=== PATIENT | female | born 1950 | race Caucasian/White ===

== ENCOUNTER 2018-06-05 02:17 | Inpatient (IN) | payer MEDICARE, BC ==
[~2018-06-05] VITALS: Ht 180.3 cm; Wt 63.5 kg
[2018-06-05] MEDS ORDERED: ATOR40TA PO (02:44)
[2018-06-05] MEDS ORDERED: AMLO10TA2 PO (02:44)
[2018-06-05] MEDS ORDERED: VALB80CA PO (02:44)
[2018-06-05] MEDS ORDERED: GABA-534 PO (02:44)
--- NOTE | 2018-06-05 02:45 | NUR ---
ADMISSION NOTES: ADMITTED A 67 Y/O FEMALE, PATIENT CAME FROM [facility]. ADMITTED FROM ER. PT IS ON 5150 HOLD FOR GD. PER HOLD PT WAS FOUND IN HER HOME COVERED IN URINE, NOT EATING, SLEEPING, SHE REPORTS SHE HAD BEEN SEVERELY DEPRESSED AND HAD NOT LEFT IN HER COUCH IN A DAY. PT UNABLE TO ACCEPT OR ACCESS BASIC CARE, FOOD DUE TO PSYCHIATRIC SYMPTOMS. UPON FACE TO FACE ASSESSMENT. PATIENT APPEARS TO BE ALERT, ORIENTED X2, ANXIOUS, CONFUSED, DEPRESSED. V/S STABLE. NO COMPLAIN OF PAIN/DISCOMFORT AT THIS TIME. NO ACUTE DISTRESS NOTED. BELONGINGS INVENTORIED AND CHECKED FOR CONTRABAND. PUT IT IN SAFE/LOCKED CABINET. PATIENT IS UNDER THE PSYCHIATRIC CARE OF DR. ESPARZA AND UNDER THE MEDICAL CARE OF DR. DAVIS. BOTH DOCTORS ARE AWARE OF THE ADMISSION. SKIN/BODY ASSESSMENT DONE. PICTURES TAKEN. WOUND CONSULT TRIGGERED. MRSA DONE. BED LOCKED AND PLACED IN LOWEST POSITION. ALL NEEDS ATTENDED. WILL CONTINUE TO MONITOR Q15MIN FOR SAFETY AND BEHAVIOR.
[2018-06-05] MEDS ORDERED: CEPH-570 PO (02:49)
[2018-06-05] MEDS ORDERED: MAG HYDROX/AL HYDROX/SIMETH 30 ML UDC PO PRN (03:00)
[2018-06-05] MEDS ORDERED: MAGNESIUM HYDROXIDE 30 ML UDC PO PRN (03:00)
[2018-06-05] MEDS ORDERED: clonazePAM 0.5 MG TABLET PO PRN (03:00)
[2018-06-05 04:02] VITALS: BP 146/75
--- NOTE | 2018-06-05 05:30 | NUR ---
GPS-RN PAGED DR. DAVIS TO RECONCILE THE MEDS. AWAITING TO CALLBACK. WILL ENDORSE TO NEXT SHIFT NURSE FOR FOLLOW UP.
[2018-06-05 08:00] VITALS: BP 130/85
[2018-06-05] MEDS: Z GUARD REMEDY 2 OZ OINT TP SCH (09:29)
--- NOTE | 2018-06-05 12:21 | NUR ---
CALLED DR. LIU FOR THE CONSULT AND LEFT A MESSAGE.
[2018-06-05] MEDS: ARIPIPRAZOLE 2 MG TABLET PO SCH (12:55)
--- NOTE | 2018-06-05 14:41 | NUR ---
GPS/RN-NOTES DID F/U WITH PATIENT SISTER JOSE MOURA ([phone]) REGARDING INGREZZA MEDICATION IF THEY WILL PROVIDE. PER JOSE SHE WILL F/U BY THURSDAY CAUSE SHE BELIEVE THAT NEXT DELIVERY OF THE PATIENT MEDICATIONS WAS THIS COMING THURSDAY. MANAGER OF ADMINISTRATION INSTRUCTED JOSE TO CALL THE UNIT WHEN THE SAID MEDICATION IS AVAILABLE OR TO BRING IN THE MEDICATION. MALICK (PHARMACIES) MADE AWARE.
[2018-06-05 16:00] VITALS: BP 119/81
--- NOTE | 2018-06-05 19:10 | NUR ---
RN OPENING NOTES RECEIVED PT AWAKE IN BED, IN NO ACUTE DISTRESS AT THIS TIME, NO SOB AND BREATHING EVEN AND UNLABORED. PT IS ALERT AND ORIENTED X 2, VERBALLY RESPONSIVE WITH NO C/O PAIN,. ALL PATIENT'S NEEDS ATTENDED TO. PLACED BED IN LOW POSITION AND LOCKED IN PLACE.
[2018-06-05 20:00] VITALS: BP 125/75
[2018-06-05] MEDS: CEPHALEXIN MONOHYDRATE 500 MG CAPSULE PO SCH (21:04)
[2018-06-05] MEDS: MIRTAZAPINE 15 MG TABLET PO SCH (21:04)
[2018-06-06 08:00] VITALS: BP 109/64
[2018-06-06] MEDS: CEPHALEXIN MONOHYDRATE 500 MG CAPSULE PO SCH ×2 (08:27→21:21)
[2018-06-06] MEDS: GABAPENTIN 300 MG CAPSULE PO SCH (08:27)
[2018-06-06] MEDS: ATORVASTATIN 40 MG TABLET PO SCH (08:27)
[2018-06-06] MEDS: ARIPIPRAZOLE 2 MG TABLET PO SCH (08:27)
[2018-06-06] MEDS: AMLODIPINE BESYLATE 10 MG TABLET PO SCH (08:28)
[2018-06-06] MEDS: Valbenazine Tosylate (Ingrezza) 80 MG PO SCH (08:29)
[2018-06-06] MEDS: Z GUARD REMEDY 2 OZ OINT TP SCH (08:32)
[2018-06-06 10:38] LABS: BASOPHILS % (AUTO) 0.4 % (0.0-2.0); EOSINOPHILS % (AUTO) 1.9 % (0.0-6.0); HEMATOCRIT 44 % (33-45); HEMOGLOBIN 14.8 g/dL (11.5-14.8); LYMPHOCYTES # (AUTO) 2.1 /CMM (0.8-4.8); LYMPHOCYTES % (AUTO) 32.3 % (20.0-44.0); MEAN CORPUSCULAR HEMOGLOBIN 32 PG (26.0-33.0); MEAN CORPUSCULAR HGB CONC 33 g/dl (31.0-36.0); MEAN CORPUSCULAR VOLUME 95 fL (82-100); MONOCYTES # (AUTO) 0.6 /CMM (0.1-1.30); NEUTROPHILS # (AUTO) 3.7 /CMM (1.8-8.9); NEUTROPHILS % (AUTO) 56.4 % (43.0-81.0); PLATELET COUNT (AUTO) 221 /CMM (150-450); RDW COEFFICIENT OF VARIATION 14.1 (11.5-15.0); RED BLOOD CELL COUNT(AUTO) 4.67 MIL/uL (4.0-5.2); WHITE BLOOD COUNT (AUTO) 6.6 K/uL (4.3-11.0)
[2018-06-06 10:59] LABS: ALBUMIN 3.4 g/dL (3.4-5.0); BILIRUBIN,TOTAL 1.1 mg/dL (0.2-1.0); CALCIUM, SERUM 8.5 mg/dL (8.5-10.1); CREATININE 0.8 mg/dL (0.6-1.3); POTASSIUM 3.2 mmol/L (3.5-5.1); TOTAL PROTEIN, SERUM 6.5 g/dL (6.4-8.2)
[2018-06-06] MEDS ORDERED: POTASSIUM CHLORIDE 20 MEQ TAB.PRT.SR PO ONE (11:30)
[2018-06-06 16:00] VITALS: BP 106/52
[2018-06-06 19:58] VITALS: BP 96/60
[2018-06-06] MEDS: MIRTAZAPINE 15 MG TABLET PO SCH (21:21)
[2018-06-06 23:00] VITALS: BP 105/62
[2018-06-07 08:00] VITALS: BP 120/67
[2018-06-07 08:07] LABS: THYROID STIMULATING HORMONE 1.84 uIU/mL (0.358-3.74)
[2018-06-07] MEDS: Valbenazine Tosylate (Ingrezza) 80 MG PO SCH (09:00)
[2018-06-07] MEDS: AMLODIPINE BESYLATE 10 MG TABLET PO SCH (09:20)
[2018-06-07] MEDS: ATORVASTATIN 40 MG TABLET PO SCH (09:20)
[2018-06-07] MEDS: CEPHALEXIN MONOHYDRATE 500 MG CAPSULE PO SCH ×2 (09:20→20:41)
[2018-06-07] MEDS: Z GUARD REMEDY 2 OZ OINT TP SCH (09:21)
[2018-06-07] MEDS: ARIPIPRAZOLE 2 MG TABLET PO SCH (09:21)
--- NOTE | 2018-06-07 11:41 | NUR ---
WOUND CARE CONSULT: PT PRESENTS AMBULATORY BUT INCONTINENT WITH RASH TO BUTTOCKS AND PERINEUM, PRESENT ON ADMISSION. RECOMMENDATIONS MADE FOR SKIN CARE AND PROTECTION. DISCUSSED WITH NURSING STAFF. WILL SEE PRN. CORLEY IN AGREEMENT WITH PLAN OF CARE. Addendum: 06/07/18 at 1143 by KARY SAMPSON WNDNU Amended: Links added.
[2018-06-07] MEDS: ASPIRIN EC 81 MG TABLET.DR PO SCH (11:47)
[2018-06-07] MEDS: GABAPENTIN 300 MG CAPSULE PO SCH (11:47)
--- NOTE | 2018-06-07 11:57 | NUR ---
[id number]: CALLED JOSE SISTER OF PT AND AT THIS TIME FAMILY CAN'T BRING INGREZZA 80 MG PO BECAUSE IT'S GETTING MAILED. NOTIFIED PHARMACY ABOUT THIS MEDICATION AND THAT FAMILY WILL BRINGING WHEN THE MEDICATION ARRIVES
--- NOTE | 2018-06-07 12:12 | NUR ---
Pt's sister and DPOA, Oksana Martinez ([phone]) and her other sister, Karen Zamudio ([phone]), called the SW and inquired about the pt. SW stated that there is no discharge plan yet considering that the SW has not had the opportunity to meet with the pt yet or her psychiatrist. The DPOA stated that she would like the pt to be transferred to a senior living facility in the [facility].
--- NOTE | 2018-06-07 15:59 | NUR ---
Initial Discharge Plan: Pt is currently living in a mobile home located at [address] [place] [address], [address] [address]; ([phone]). Per pt, she would like to return there but her DPOA, Oksana Martinez ([phone]), stated that a assisted facility is more appropriate. GIN will work with the pt, the DPOA and the MD regarding appropriate discharge planning. SW will form a safe and proper discharge.
[2018-06-07 16:00] VITALS: BP 112/78
[2018-06-07] MEDS: CLOTRIMAZOLE 1% 15 GM TUBE TP SCH (16:07)
[2018-06-07 20:50] VITALS: BP 101/44
[2018-06-07] MEDS: MIRTAZAPINE 15 MG TABLET PO SCH (21:30)
[2018-06-08 08:00] VITALS: BP 98/71
[2018-06-08] MEDS: Valbenazine Tosylate (Ingrezza) 80 MG PO SCH (09:00)
[2018-06-08] MEDS: AMLODIPINE BESYLATE 10 MG TABLET PO SCH (09:00)
[2018-06-08] MEDS: ARIPIPRAZOLE 2 MG TABLET PO SCH (09:18)
[2018-06-08] MEDS: ASPIRIN EC 81 MG TABLET.DR PO SCH (09:18)
[2018-06-08] MEDS: CEPHALEXIN MONOHYDRATE 500 MG CAPSULE PO SCH ×2 (09:18→20:40)
[2018-06-08] MEDS: GABAPENTIN 300 MG CAPSULE PO SCH (09:18)
[2018-06-08] MEDS: ATORVASTATIN 40 MG TABLET PO SCH (09:18)
[2018-06-08] MEDS: Z GUARD REMEDY 2 OZ OINT TP SCH (09:25)
[2018-06-08] MEDS: CLOTRIMAZOLE 1% 15 GM TUBE TP SCH ×2 (09:25→17:21)
--- NOTE | 2018-06-08 10:58 | NUR ---
NO INGREZZA MED YET DELIVERED BY FAMILY.SO UNABLE TO ADMINISTER.
[2018-06-08 12:43] LABS: APPEARANCE,URINE CLEAR (CLEAR); BILIRUBIN,URINE NEGATIVE (NEGATIVE); BLOOD, URINE NEGATIVE Ery/uL (NEGATIVE); COLOR,URINE YELLOW (YELLOW); KETONES,URINE NEGATIVE (NEGATIVE); LEUKOCYTE ESTERASE ,URINE NEGATIVE (NEGATIVE); NITRITE, URINE NEGATIVE (NEGATIVE); PROTEIN,URINE NEGATIVE (NEGATIVE); UGLUCOSE NEGATIVE (NEGATIVE)
[2018-06-08 13:06] LABS: RBC,URINE NONE SEEN /HPF (0-2)
[2018-06-08 13:09] LABS: BACTERIA,URINE None seen /HPF (None Seen); CALCIUM OXALATE CRYSTALS,UR Few /HPF (None Seen); MUCUS,URINE Few /LPF (None Seen); SQUAMOUS EPITHELIAL CELL,UR Rare /HPF (None Seen)
[2018-06-08 16:00] VITALS: BP 91/58
--- NOTE | 2018-06-08 16:03 | NUR ---
SW called pt's sister and DPOA, Oksana Martinez ([phone]), and left her a voicemail stating that there are no updates in terms of a assisted facility in [place].
[2018-06-08 20:14] VITALS: BP 109/54
[2018-06-08 20:23] VITALS: BP 165/72
[2018-06-08] MEDS: MIRTAZAPINE 15 MG TABLET PO SCH (21:03)
[2018-06-09 08:00] VITALS: BP 114/78
[2018-06-09] MEDS: Valbenazine Tosylate (Ingrezza) 80 MG PO SCH (09:00)
[2018-06-09] MEDS: Z GUARD REMEDY 2 OZ OINT TP SCH (09:44)
[2018-06-09] MEDS: CLOTRIMAZOLE 1% 15 GM TUBE TP SCH ×2 (09:45→16:07)
[2018-06-09] MEDS: ATORVASTATIN 40 MG TABLET PO SCH (09:46)
[2018-06-09] MEDS: CEPHALEXIN MONOHYDRATE 500 MG CAPSULE PO SCH ×2 (09:46→20:58)
[2018-06-09] MEDS: GABAPENTIN 300 MG CAPSULE PO SCH (09:47)
[2018-06-09] MEDS: ARIPIPRAZOLE 5 MG TABLET PO SCH (09:47)
[2018-06-09] MEDS: AMLODIPINE BESYLATE 10 MG TABLET PO SCH (09:47)
[2018-06-09] MEDS: ASPIRIN EC 81 MG TABLET.DR PO SCH (09:47)
--- NOTE | 2018-06-09 13:05 | NUR ---
Oksana Martinez ([phone]) called the SW back and suggested two placement options because she stated that senior living facilities in the [place] are not an option. The two options were: [facility] and [facility].
--- NOTE | 2018-06-09 13:09 | NUR ---
Karen Zamudio ([phone]), pt's sister, called the SW and restated what the pt's DPOA stated.
--- NOTE | 2018-06-09 15:00 | NUR ---
NURSING NOTE DR. ESPARZA HAS BEEN NOTIFIED REGARDING PT NOT TAKING INGREZZA 80 MG PO DUE TO MEDICATION NOT BEING AVAILABLE. WILL CONTINUE TO MONITOR.
[2018-06-09 16:00] VITALS: BP 180/54
[2018-06-09 20:10] VITALS: BP 94/61
[2018-06-09] MEDS: MIRTAZAPINE 15 MG TABLET PO SCH (21:01)
[2018-06-09] MEDS: ACETAMINOPHEN 325 MG TABLET PO PRN (22:25)
[2018-06-10 08:00] VITALS: BP 121/67
[2018-06-10] MEDS: ASPIRIN EC 81 MG TABLET.DR PO SCH (09:00)
[2018-06-10] MEDS: GABAPENTIN 300 MG CAPSULE PO SCH (09:00)
[2018-06-10] MEDS: CEPHALEXIN MONOHYDRATE 500 MG CAPSULE PO SCH ×2 (09:00→21:28)
[2018-06-10] MEDS: Valbenazine Tosylate (Ingrezza) 80 MG PO SCH (09:00)
[2018-06-10] MEDS: ATORVASTATIN 40 MG TABLET PO SCH (09:00)
[2018-06-10] MEDS: AMLODIPINE BESYLATE 10 MG TABLET PO SCH (09:01)
[2018-06-10] MEDS: Z GUARD REMEDY 2 OZ OINT TP SCH (09:01)
[2018-06-10] MEDS: CLOTRIMAZOLE 1% 15 GM TUBE TP SCH ×2 (09:01→17:00)
[2018-06-10] MEDS: ARIPIPRAZOLE 5 MG TABLET PO SCH (09:20)
--- NOTE | 2018-06-10 10:01 | NUR ---
GIN called two chcf facilities in [place]. One is called [facility] ([phone]) and the other is [facility] ([phone]). The referrals were faxed to: [facility]: [phone] [facility]: [phone]
[2018-06-10 16:00] VITALS: BP 110/75
[2018-06-10 20:00] VITALS: BP 113/69
[2018-06-10 20:18] VITALS: BP 113/69
[2018-06-10] MEDS: MIRTAZAPINE 15 MG TABLET PO SCH (21:28)
[2018-06-11] MEDS: ACETAMINOPHEN 325 MG TABLET PO PRN (00:09)
[2018-06-11] MEDS: TEMAZEPAM 7.5 MG CAPSULE PO PRN ×2 (00:27→21:19)
[2018-06-11 08:00] VITALS: BP 124/73
[2018-06-11] MEDS: Valbenazine Tosylate (Ingrezza) 80 MG PO SCH (09:00)
[2018-06-11] MEDS: ARIPIPRAZOLE 5 MG TABLET PO SCH (09:24)
[2018-06-11] MEDS: CEPHALEXIN MONOHYDRATE 500 MG CAPSULE PO SCH (09:24)
[2018-06-11] MEDS: AMLODIPINE BESYLATE 10 MG TABLET PO SCH (09:25)
[2018-06-11] MEDS: GABAPENTIN 300 MG CAPSULE PO SCH (09:25)
[2018-06-11] MEDS: ATORVASTATIN 40 MG TABLET PO SCH (09:26)
[2018-06-11] MEDS: ASPIRIN EC 81 MG TABLET.DR PO SCH (09:26)
[2018-06-11] MEDS: CLOTRIMAZOLE 1% 15 GM TUBE TP SCH ×2 (09:34→18:00)
[2018-06-11] MEDS: Z GUARD REMEDY 2 OZ OINT TP SCH (09:35)
[2018-06-11] MEDS: FOLIC ACID 1 MG TABLET PO SCH (12:41)
--- NOTE | 2018-06-11 14:08 | NUR ---
GIN called Cher from [facility] ([phone]) and stated that the pt was denied admission due to prior history.
--- NOTE | 2018-06-11 14:10 | NUR ---
SW called [facility] ([phone]) and they provided the SW with a better fax number to send the referral to.
--- NOTE | 2018-06-11 14:11 | NUR ---
GIN faxed a referral to [facility] to the fax number: [phone].
--- NOTE | 2018-06-11 14:12 | NUR ---
GIN faxed a referral to [facility] to the fax number: [phone].
--- NOTE | 2018-06-11 14:13 | NUR ---
SW called pt's sister and DPOA, Oksana Martinez ([phone]), and informed her that [facility] denied the [place] and that the SW would send more referrals out in the [facility] area.
[2018-06-11 16:00] VITALS: BP 112/67
[2018-06-11 20:00] VITALS: BP 106/69
[2018-06-11] MEDS: MIRTAZAPINE 15 MG TABLET PO SCH (21:19)
[2018-06-12 08:00] VITALS: BP 115/79
[2018-06-12] MEDS: Valbenazine Tosylate (Ingrezza) 80 MG PO SCH (09:00)
[2018-06-12] MEDS: CLOTRIMAZOLE 1% 15 GM TUBE TP SCH ×2 (09:19→16:51)
[2018-06-12] MEDS: FOLIC ACID 1 MG TABLET PO SCH (09:20)
[2018-06-12] MEDS: ASPIRIN EC 81 MG TABLET.DR PO SCH (09:20)
[2018-06-12] MEDS: ARIPIPRAZOLE 5 MG TABLET PO SCH (09:20)
[2018-06-12] MEDS: Z GUARD REMEDY 2 OZ OINT TP SCH (09:20)
[2018-06-12] MEDS: GABAPENTIN 300 MG CAPSULE PO SCH (09:20)
[2018-06-12] MEDS: ATORVASTATIN 40 MG TABLET PO SCH (09:20)
[2018-06-12] MEDS: AMLODIPINE BESYLATE 10 MG TABLET PO SCH (09:20)
--- NOTE | 2018-06-12 12:31 | NUR ---
rn notes INGREZZA MED NOT AVAIL, INFORMED DR BRADFORD.
[2018-06-12 16:00] VITALS: BP 95/69
[2018-06-12 20:00] VITALS: BP 100/45
[2018-06-12] MEDS: MIRTAZAPINE 15 MG TABLET PO SCH (21:12)
[2018-06-12] MEDS: TEMAZEPAM 7.5 MG CAPSULE PO PRN (21:19)
[2018-06-13 08:00] VITALS: BP 130/69
[2018-06-13] MEDS: Valbenazine Tosylate (Ingrezza) 80 MG PO SCH (09:00)
[2018-06-13] MEDS: ATORVASTATIN 40 MG TABLET PO SCH (09:34)
[2018-06-13] MEDS: GABAPENTIN 300 MG CAPSULE PO SCH (09:34)
[2018-06-13] MEDS: AMLODIPINE BESYLATE 10 MG TABLET PO SCH (09:34)
[2018-06-13] MEDS: ARIPIPRAZOLE 5 MG TABLET PO SCH (09:34)
[2018-06-13] MEDS: ASPIRIN EC 81 MG TABLET.DR PO SCH (09:34)
[2018-06-13] MEDS: FOLIC ACID 1 MG TABLET PO SCH (09:34)
[2018-06-13] MEDS: Z GUARD REMEDY 2 OZ OINT TP SCH (09:35)
[2018-06-13] MEDS: CLOTRIMAZOLE 1% 15 GM TUBE TP SCH ×2 (09:35→16:55)
[2018-06-13 16:00] VITALS: BP 103/67
[2018-06-13 20:00] VITALS: BP 89/52
[2018-06-13 20:02] VITALS: BP 89/50
--- NOTE | 2018-06-13 20:10 | NUR ---
RN NOTES PATIENT TRANSFER FROM GPS UNIT. PATIENT AWAKE, ALERT AND ORIENTED X 3, CALM, COOPERATIVE, NO AGITATION NOTED AT THIS TIME, NO SOB, NO ACUTE DISTRESS, BREATHING EVEN AND UNLABORED, DENIES PAIN AND DISCOMFORT, WILL CONTINUE TO MONITOR [id number] FOR SAFETY
[2018-06-13] MEDS: MIRTAZAPINE 15 MG TABLET PO SCH (21:42)
--- NOTE | 2018-06-14 06:49 | NUR ---
RN CLOSING NOTES PATIENT AWAKE, ALERT AND ORIENTED X 3, CALM, COOPERATIVE, NO AGITATION NOTED AT THIS TIME, NO SOB, NO ACUTE DISTRESS, BREATHING EVEN AND UNLABORED, DENIES PAIN AND DISCOMFORT. WILL ENDORSE TO DAY SHIFT NURSE FOR CONTINUITY OF CARE.
--- NOTE | 2018-06-14 07:40 | NUR ---
GPS OVERFLOW MS RN OPENING NOTES RECEIVED PT FROM NIGHTSHIFT NURSE IN STABLE CONDITION. PT IS A/O X3. NO SOB OR ACUTE SIGNS OF DISTRESS NOTED. BREATHING EVEN AND UNLABORED. SHE DENIES ANY PAIN AT THIS TIME. SHE DENIES ANY SUICIDAL OR HOMICIDAL IDEATION. BED IN LOW LOCKED POSITION, SIDE RAILS UP X2, 1:1 SITTER AT BEDSIDE. WILL CONTINUE TO MONITOR FOR BEHAVIOR AND SAFETY
[2018-06-14 08:00] VITALS: BP 106/76
[2018-06-14] MEDS: GABAPENTIN 300 MG CAPSULE PO SCH (08:35)
[2018-06-14] MEDS: ASPIRIN EC 81 MG TABLET.DR PO SCH (08:35)
[2018-06-14] MEDS: ARIPIPRAZOLE 5 MG TABLET PO SCH (08:35)
[2018-06-14] MEDS: CLOTRIMAZOLE 1% 15 GM TUBE TP SCH ×2 (08:35→16:11)
[2018-06-14] MEDS: ATORVASTATIN 40 MG TABLET PO SCH (08:36)
[2018-06-14] MEDS: Valbenazine Tosylate (Ingrezza) 80 MG PO SCH (08:36)
[2018-06-14] MEDS: FOLIC ACID 1 MG TABLET PO SCH (08:36)
[2018-06-14] MEDS: AMLODIPINE BESYLATE 10 MG TABLET PO SCH (08:38)
[2018-06-14] MEDS: Z GUARD REMEDY 2 OZ OINT TP SCH (09:00)
--- NOTE | 2018-06-14 11:31 | NUR ---
GIN called [facility] ([phone]) and left a message with the facility regarding a call back for the referral that was sent on Thursday.
--- NOTE | 2018-06-14 11:37 | NUR ---
SW called [facility] ([phone]) and spoke to the admissions department who stated that the pt was not accepted due to her psych needs.
--- NOTE | 2018-06-14 11:43 | NUR ---
SW called pt's sister and DPOA, Oksana Martinez ([phone]), and informed her that the pt is being denied from all of the facilities that referrals are being sent to due to the psych diagnosis. The DPOA agreed to allow the SW to attempt finding a facility in the [place] region.
--- NOTE | 2018-06-14 14:31 | NUR ---
GIN called [facility] ([phone]) and asked to speak to Che who stated that she would call the SW back.
--- NOTE | 2018-06-14 14:33 | NUR ---
GIN faxed the pts referral to [facility] to the fax number: [phone] for a second time per the DPOA, Oksana Martinez ([phone]), request.
--- NOTE | 2018-06-14 14:35 | NUR ---
GIN faxed a referral to [facility] to the fax number: [phone].
--- NOTE | 2018-06-14 14:36 | NUR ---
SW called pt's sister and DPOA, Oksana Martinez ([phone]), and informed her that the SW is resending the referral to [facility] and that she is going to get in contact with Che from [facility].
--- NOTE | 2018-06-14 15:21 | NUR ---
GIN faxed an updated referral to [facility] to the fax number: [phone].
[2018-06-14 16:00] VITALS: BP 102/64
--- NOTE | 2018-06-14 18:44 | NUR ---
GPS RN OVERFLOW CLOSING NOTES PT REMAIN STABLE. ALL NEEDS ANTICIPATED FOR AND MET DURING SHIFT. ALL DUE MEDS GIVEN. SHE CONTINUES TO DENY AND SI/HI. PT COMPLIANT WITH MED PASS AND TX. 1:1 SITTER REMAINS AT BEDSIDE. WILL ENDORSE TO NIGHTSHIFT NURSE FOR SHIRLEY
--- NOTE | 2018-06-14 19:20 | NUR ---
GPS OVERFLOW/RN OPENING NOTES PT RECEIVED AWAKE, RESTING COMFORTABLY IN BED. A/OX3. ON ROOM AIR, BREATHING EVEN AND UNLABORED. DENIES SOB OR PAIN. SITTER AT BEDSIDE. NO IV ACCESS PER PROTOCOL. BED IN LOW/LOCKED POSITION WITH CALL LIGHT IN REACH AND UPPER SIDE RAILS UPX2. BED ALARM ON FOR SAFETY. AWARE OF TRANSFER TO MS2. VERBALIZED UNDERSTANDING. WILL CONTINUE TO MONITOR
--- NOTE | 2018-06-14 20:00 | NUR ---
GPS/RN NOTES PT TRANSFERRED TO MS2 IN STABLE CONDITION. REORIENTED TO ROOM AND CALL LIGHT. SITTER AT BEDSIDE. BELONGINGS LIST REVIEWED/UPDATED WITH PT AND PLACED IN THE CHART.
[2018-06-14 20:30] VITALS: BP 104/65
[2018-06-14] MEDS: MIRTAZAPINE 15 MG TABLET PO SCH (21:41)
[2018-06-14] MEDS: TEMAZEPAM 7.5 MG CAPSULE PO PRN (22:11)
--- NOTE | 2018-06-15 07:20 | NUR ---
GPS OVERFLOW MS RN OPENING NOTES RECEIVED PT ASLEEP EASILY AROUSABLE DURING CARE PT IS A/O X3 . NO SOB OR ACUTE SIGNS OF DISTRESS NOTED. RESPIRATIONS EVEN AND UNLABORED. SHE DENIES ANY PAIN AT THIS TIME. SHE DENIES ANY SUICIDAL OR HOMICIDAL IDEATION. BED IN LOW LOCKED POSITION, SIDE RAILS UP X2, 1:1 SITTER AT BEDSIDE. WILL CONTINUE TO MONITOR FOR BEHAVIOR AND SAFETY
--- NOTE | 2018-06-15 07:20 | NUR ---
GPS OVERFLOW/RN CLOSING NOTES PT RESTING COMFORTABLY IN BED. REMAINS ON ROOM AIR, BREATHING EVEN AND UNLABORED. DENIES SOB OR PAIN. SITTER AT BEDSIDE. NO IV ACCESS PER PROTOCOL. NO SIGNIFICANT CHANGES OVERNIGHT. KEPT PT COMFORTABLE DURING SHIFT. DENIES SI/HI. SLEPT THROUGHOUT SHIFT. BED IN LOW/LOCKED POSITION WITH CALL LIGHT IN REACH AND UPPER SIDE RAILS UPX2. BED ALARM ON FOR SAFETY. WILL ENDORSE TO DAY SHIFT RN SHIRLEY.
[2018-06-15 08:00] VITALS: BP 119/67
[2018-06-15] MEDS: ASPIRIN EC 81 MG TABLET.DR PO SCH (08:34)
[2018-06-15] MEDS: FOLIC ACID 1 MG TABLET PO SCH (08:34)
[2018-06-15] MEDS: ATORVASTATIN 40 MG TABLET PO SCH (08:34)
[2018-06-15] MEDS: ARIPIPRAZOLE 5 MG TABLET PO SCH (08:34)
[2018-06-15] MEDS: AMLODIPINE BESYLATE 10 MG TABLET PO SCH (08:34)
[2018-06-15] MEDS: CLOTRIMAZOLE 1% 15 GM TUBE TP SCH ×2 (08:37→17:25)
[2018-06-15] MEDS: Valbenazine Tosylate (Ingrezza) 80 MG PO SCH (09:00)
[2018-06-15] MEDS: GABAPENTIN 300 MG CAPSULE PO SCH (10:47)
[2018-06-15] MEDS: Z GUARD REMEDY 2 OZ OINT TP SCH (10:52)
--- NOTE | 2018-06-15 11:09 | NUR ---
GIN called [facility] ([phone]) and asked to speak to Che who stated that she would call the SW back.
--- NOTE | 2018-06-15 11:13 | NUR ---
GIN called [facility] ([phone]) and was told that Sybil would call the GIN back after her meeting regarding the pts referral.
--- NOTE | 2018-06-15 11:14 | NUR ---
SW called pt's sister and DPOA, Oksana Martinez ([phone]), and informed her that the SW would be able to give her an answer regarding whether or not the pt has been accepted to their facilities once the admissions departments are out of their meeting.
--- NOTE | 2018-06-15 11:26 | NUR ---
Ole from [facility] ([phone]) came to assess the pt and stated that she was a good fit for their facility.
--- NOTE | 2018-06-15 13:35 | NUR ---
GIN called [facility] ([phone]) and was told that the pts referral was still being reviewed.
--- NOTE | 2018-06-15 13:36 | NUR ---
GIN called [facility] ([phone]) and was told that Sybil would call the GIN back after her lunch regarding the pts referral.
--- NOTE | 2018-06-15 13:37 | NUR ---
SW called pt's sister and DPOA, Oksana Martinez ([phone]), and left a voicemail stating that the two facilities are still not giving the SW a response regarding the referral but [facility] accepted the pt after assessing her.
--- NOTE | 2018-06-15 19:08 | NUR ---
GPS OVERFLOW MS RN CLOSING NOTES RECEIVED PT ASLEEP EASILY AROUSABLE DURING CARE PT IS A/O X3 . NO SOB OR ACUTE SIGNS OF DISTRESS NOTED. RESPIRATIONS EVEN AND UNLABORED. SHE DENIES ANY PAIN AT THIS TIME. SHE DENIES ANY SUICIDAL OR HOMICIDAL IDEATION. BED IN LOW LOCKED POSITION, SIDE RAILS UP X2, 1:1 SITTER AT BEDSIDE. WILL CONTINUE TO MONITOR FOR BEHAVIOR AND SAFETY AND ENDORSE TO NEXT SHIFT FOR CONTINUITY OF CARE
--- NOTE | 2018-06-15 19:45 | NUR ---
GPS OVERFLOW/RN OPENING NOTES PT RECEIVED ASLEEP IN BED. ON ROOM AIR BREATHING EVEN AND UNLABORED. NO SOB OR PAIN NOTED. DENIES SI/HI. SITTER AT BEDSIDE. BED IN LOW/LOCKED POSITION WITH CALL LIGHT IN REACH. SIDE RAILS UPX3 WITH BED ALARM ON FOR SAFETY. WILL CONTINUE TO MONITOR
[2018-06-15 20:00] VITALS: BP 103/63
[2018-06-15] MEDS: MIRTAZAPINE 15 MG TABLET PO SCH (21:10)
[2018-06-16] MEDS: TEMAZEPAM 7.5 MG CAPSULE PO PRN ×2 (00:27→21:25)
--- NOTE | 2018-06-16 07:25 | NUR ---
GPS OVERFLOW/RN CLOSING NOTES PT AWAKE, RESTING COMFORTABLY IN BED. SITTER AT BEDSIDE. REMAINS ON ROOM AIR BREATHING EVEN AND UNLABORED. NO SOB, PAIN OR ACUTE DISTRESS NOTED. DENIES SI/HI. SLEPT WELL DURING SHIFT. NO SIGNIFICANT CHANGES OVERNIGHT. BED IN LOW/LOCKED POSITION WITH CALL LIGHT IN REACH. SIDE RAILS UPX3 WITH BED ALARM. SAFETY PRECAUTIONS IMPLEMENTED. ENDORSED TO DAY SHIFT RN SHIRLEY.
--- NOTE | 2018-06-16 07:50 | NUR ---
RN NOTES PATIENT A/OX2-3, BREATHING EVEN AND UNLABORED, NO SOB NOTED, DENIES PAIN OR DISCOMFORT AT THIS TIME. DENIES SI/HI, KEPT COMFORTABLE, NEEDS ATTENDED, CALL LIGHT WITHIN REACH, WILL CONTINUE TO MONITOR.
[2018-06-16 08:23] VITALS: BP 110/77
[2018-06-16] MEDS: GABAPENTIN 300 MG CAPSULE PO SCH (08:51)
[2018-06-16] MEDS: ASPIRIN EC 81 MG TABLET.DR PO SCH (08:51)
[2018-06-16] MEDS: AMLODIPINE BESYLATE 10 MG TABLET PO SCH (08:51)
[2018-06-16] MEDS: ATORVASTATIN 40 MG TABLET PO SCH (08:51)
[2018-06-16] MEDS: Z GUARD REMEDY 2 OZ OINT TP SCH (08:52)
[2018-06-16] MEDS: FOLIC ACID 1 MG TABLET PO SCH (08:52)
[2018-06-16] MEDS: ARIPIPRAZOLE 5 MG TABLET PO SCH (08:52)
[2018-06-16] MEDS: CLOTRIMAZOLE 1% 15 GM TUBE TP SCH ×2 (08:54→17:31)
[2018-06-16] MEDS: Valbenazine Tosylate (Ingrezza) 80 MG PO SCH (09:00)
--- NOTE | 2018-06-16 11:02 | NUR ---
DPOA, Oksana Martinez ([phone]), called the SW and stated that if the pt cannot be placed in a facility in the [facility] by the end of the week then they would consider discharging to [facility].
--- NOTE | 2018-06-16 11:10 | NUR ---
GIN called Che ([phone]) from [facility] and followed up on the pts referral. Che stated that the deputy administrator was speaking to the family and asked the SW to fax the physical therapy notes over as well.
--- NOTE | 2018-06-16 11:13 | NUR ---
GIN faxed the pts physical therapy notes to [facility] to the fax number: [phone] with attn to Che.
--- NOTE | 2018-06-16 11:19 | NUR ---
SW called Sybil ([phone]) from [facility] and she stated that they are still reviewing the pts referral.
--- NOTE | 2018-06-16 11:53 | NUR ---
Shirley ([phone]) from [facility] called the and stated that they have sister facilities [place]. [facility]
--- NOTE | 2018-06-16 15:39 | NUR ---
SW called pt's sister and DPOA, Oksana Martinez ([phone]), and informed her about the referral that was sent to [facility]. GIN also stated that if we do not hear word from any of these referrals that the pt will be transferred to [facility].
[2018-06-16 16:34] VITALS: BP 121/69
--- NOTE | 2018-06-16 18:25 | NUR ---
RN NOTES PATIENT IN NO DISTRESS, NO SIGNIFICANT CHANGE THIS SHIFT, DENIES SI/HI, FAMILY REQUESTING FOR DR. ESPARZA TO CALL OUTPATIENT PSYCH MD DR. DELANEY . NEEDS ATTENDED AND MET, CALL LIGHT WITHIN REACH, WILL ENDORSE TO PRESSURE DISPATCHER FOR SHIRLEY.
--- NOTE | 2018-06-16 19:30 | NUR ---
RN GPS OPENING NOTES RECEIVED PATIENT IN BED AWAKE AND ALERT X 3, RESPIRATIONS EVEN AND UNLABORED WITH EQUAL RISE AND FALL OF CHEST. DENIES ANY PAIN OR DISCOMFORT AT THIS TIME. ON A 5250 HOLD ORIENTED TO STAFF SAFETY MEASURES IN PLACE. LOW BED AND LOCKED, SITTER AT BEDSIDE, FLUIDS AND SNACKS OFFERED, REMAINS COMFORTABLE AT THIS TIME, ALL NEEDS ATTENDED WILL CONTINUE TO MONITOR. NO VERBALIZATION OF SI AT THIS TIME.
--- NOTE | 2018-06-16 19:31 | NUR ---
RN GPS NOTES Q15 MIN CHECKS CONTINUED
[2018-06-16 20:00] VITALS: BP 99/61
[2018-06-16] MEDS: MIRTAZAPINE 15 MG TABLET PO SCH (21:25)
--- NOTE | 2018-06-16 21:25 | NUR ---
RN GPS NOTES PATIENT REQUESTING FOR SLEEPING MEDICATION RESTORIL PRN GIVEN ORDERED, WILL CONTINUE TO MONITOR FOR EFFECTIVENESS.
--- NOTE | 2018-06-17 07:13 | NUR ---
RN GPS CLOSING NOTES PATIENT REMAINS IN BED SLEEPING BUT EASILY AROUSABLE , RESPIRATIONS EVEN AND UNLABORED WITH EQUAL RISE AND FALL OF CHEST, DENIES ANY PAIN OR DISCOMFORT AT THIS TIME, NO SI/HI AT THIS TIME. FLUIDS AND SNACKS OFFERED TOLERATED, SAFETY PRECAUTIONS IN PLACE, SITTER AT BEDSIDE, LOW BED AND LOCKED, NO CHNAGES THROUGHOUT SHIFT. NOTED LEFT FOR ISAIAS CORLEY DR TO CONTACT . ALL NEEDS ATTENDED WILL CONTINUE TO MONITOR AND ENDORSE TO NEXT SHIFT.
--- NOTE | 2018-06-17 07:49 | NUR ---
GPS/RN Patient received Patient received from night filler, sleeping soundly at this time. Safety measures in place, sitter remains at bedside as patient on 14 day hold. Will conitnue to monitor and ensure safety.
[2018-06-17 08:07] VITALS: BP 108/71
[2018-06-17 08:25] VITALS: BP 108/71
[2018-06-17] MEDS: ASPIRIN EC 81 MG TABLET.DR PO SCH (08:30)
[2018-06-17] MEDS: ATORVASTATIN 40 MG TABLET PO SCH (08:30)
[2018-06-17] MEDS: ARIPIPRAZOLE 5 MG TABLET PO SCH (08:30)
[2018-06-17] MEDS: FOLIC ACID 1 MG TABLET PO SCH (08:31)
[2018-06-17] MEDS: GABAPENTIN 300 MG CAPSULE PO SCH (08:31)
[2018-06-17] MEDS: AMLODIPINE BESYLATE 10 MG TABLET PO SCH (08:31)
[2018-06-17] MEDS: Z GUARD REMEDY 2 OZ OINT TP SCH (08:32)
[2018-06-17] MEDS: CLOTRIMAZOLE 1% 15 GM TUBE TP SCH ×2 (08:32→16:25)
[2018-06-17] MEDS: Valbenazine Tosylate (Ingrezza) 80 MG PO SCH (08:33)
--- NOTE | 2018-06-17 08:35 | NUR ---
GPS/RN Medications Compliant with medications.
--- NOTE | 2018-06-17 10:02 | NUR ---
GPS/retouching operator Patient transferred to GPS room 211, report given to Reza
--- NOTE | 2018-06-17 10:18 | NUR ---
GIN faxed a referral to [facility] ([phone]) yesterday to the fax number: [phone].
--- NOTE | 2018-06-17 10:20 | NUR ---
GIN called Frida from [facility] ([phone]) and was told that the SW would get a call back later.
--- NOTE | 2018-06-17 10:26 | NUR ---
GIN called Che ([phone]) from [facility] and was told that she would call the GIN back after her meeting.
--- NOTE | 2018-06-17 10:27 | NUR ---
GIN called Sybil ([phone]) from [facility] and she stated that the facility denied the pt.
--- NOTE | 2018-06-17 10:31 | NUR ---
SW called pt's sister and DPOA, Oksana Martinez ([phone]), and informed her that [facility] denied the pt. The SW then restated that the pt would have to be discharged tomorrow to [facility] if there is no answer from the other facilities who are still reviewing.
--- NOTE | 2018-06-17 11:55 | NUR ---
GIN called Che ([phone]) from [facility] and was told that the facility did not receive the physical therapy notes. The GIN re-faxed the physical therapy notes to the fax number: [phone].
[2018-06-17 17:09] VITALS: BP 100/64
[2018-06-17 19:54] VITALS: BP 109/62
[2018-06-17 20:00] VITALS: BP 109/62
[2018-06-17] MEDS: MIRTAZAPINE 15 MG TABLET PO SCH (21:06)
[2018-06-18 08:00] VITALS: BP 114/67
[2018-06-18 08:56] VITALS: BP 114/67
[2018-06-18] MEDS: FOLIC ACID 1 MG TABLET PO SCH (08:56)
[2018-06-18] MEDS: GABAPENTIN 300 MG CAPSULE PO SCH (08:56)
[2018-06-18] MEDS: AMLODIPINE BESYLATE 10 MG TABLET PO SCH (08:56)
[2018-06-18] MEDS: ARIPIPRAZOLE 5 MG TABLET PO SCH (08:57)
[2018-06-18] MEDS: ASPIRIN EC 81 MG TABLET.DR PO SCH (08:57)
[2018-06-18] MEDS: CLOTRIMAZOLE 1% 15 GM TUBE TP SCH (08:58)
[2018-06-18] MEDS: Z GUARD REMEDY 2 OZ OINT TP SCH (08:58)
[2018-06-18] MEDS: ATORVASTATIN 40 MG TABLET PO SCH (09:00)
[2018-06-18] MEDS: Valbenazine Tosylate (Ingrezza) 80 MG PO SCH (09:00)
--- NOTE | 2018-06-18 10:52 | NUR ---
REBECA, Oksana Martinez ([phone]), called the SW and it was confirmed that the pt is going to be discharged to [facility].
--- NOTE | 2018-06-18 10:53 | NUR ---
Camila ([phone]) from [facility] called the SW and stated that the pt was accepted at around 10:40AM. SW informed her that the pt was accepted to a different facility and was going to be transferred there within the next hour. Camila stated that she would look into transportation.
--- NOTE | 2018-06-18 11:05 | NUR ---
DPOA, Oksana Martinez ([phone]), called the SW and stated that she wanted the pt to be discharged to [facility] and that they would figure out how to transport the pt to [facility] after a week.
--- NOTE | 2018-06-18 13:47 | NUR ---
RN NOTE: PATIENT LEFT UNIT VIA AMBULANCE SERVICE AT 1300. PATIENT DENIES SI/HI DURING DISCHARGE. MEDICALLY STABLE. PSYCHIATRIST DC ORDER, DISCONTINUE HOLD, AND GAVE PRESCRIPTION. POSTAL SUPERINTENDENT AWARE OF DISCHARGE. BELONGINGS WITH PATIENT. EXIT CARE EXPLAINED TO PATIENT. SKIN ASSESSMENT COMPLETE AND IN CHART. REPORT GAVE TO AVE.
--- NOTE | 2018-06-18 13:57 | NUR ---
Discharge Note: Pt was discharged to [facility] (SNF) located at [address] [place] [address]; . Pt was transported via [facility] (Trip #[id number]) at 12pm. Pts DPOA, Oksana Maritnez ([phone]), agreed to this placement. Upon discharge, the pt appeared to be in a euthymic mood and presented as calm and excited to be moving on to a new facility. Pt stated that she does not have any suicidal or homicidal ideation and does not have any auditory or visual hallucinations. Pt was provided with three substance abuse referrals as well as smoking cessation referrals upon discharge. Pt will be under the care of psychiatrist, Dr. Andrea, [place] at [address] [place] [address]; and hand compositor, Dr. Lion, located at [address] [place] [address]; . Substance Abuse Referrals [facility] [address] [place] [address] Tel. [facility] [address] [place] Provider Mental Health Treatment Tele-dermatology HIV Services [facility] [place] [address] [place] [address] [facility] [address] [place] [address] Smoking Cessation Referrals [facility] [id number]-[email or web address] [facility] [phone]
== END 2018-06-18 13:00 | DRG 885 ==
LOC: GPS 02:17 → GPSOV 06-13 20:30 → GPSOV2 06-14 19:38 → GPS 06-17 10:13
PROVIDERS: ADMIT Psychiatry & Neurology Psychiatry; ATTEND Psychiatry & Neurology Psychiatry
DX: F33.3 Major depressive disorder, recurrent, severe with psychotic symptoms (principal); K21.9 Gastro-esophageal reflux disease without esophagitis; E78.5 Hyperlipidemia, unspecified; I10 Essential (primary) hypertension; Z79.899 Other long term (current) drug therapy; Z86.73 Personal history of transient ischemic attack (TIA), and cerebral infarction without residual deficits; F03.90 Unspecified dementia, unspecified severity, without behavioral disturbance, psychotic disturbance, mood disturbance, and anxiety; Z73.6 Limitation of activities due to disability; E83.31 Familial hypophosphatemia
CPT/HCPCS: 36415; 70450-TC; 80053-TC; 80061-TC; 81000-TC; 82746; 82962-TC; 83540-TC; 83735-TC; 84443-TC; 85025-TC; 87081-TC; A4606; Z7610